=== PATIENT | female | born 1935 | race Caucasian/White ===

== ENCOUNTER 2022-06-01 21:23 | Emergency (ER) | payer MEDICARE ==
[~2022-06-01] VITALS: Ht 165.1 cm; Wt 63.6 kg
[2022-06-01 21:33] VITALS: BP 171/75
[2022-06-01 21:50] LABS: BASOPHILS # (AUTO) 0.1 X10'3 (0-0.2); BASOPHILS % (AUTO) 0.8 % (0-1); EOSINOPHILS # (AUTO) 0.3 X10'3 (0-0.9); EOSINOPHILS % (AUTO) 3.6 % (0-6); HEMATOCRIT 46.1 % (35.0-45.0); HEMOGLOBIN 15.4 g/dl (12.0-16.0); LYMPHOCYTES # (AUTO) 1.5 X10'3 (1.1-4.8); LYMPHOCYTES % (AUTO) 21.5 % (21-51); MEAN CORPUSCULAR HGB CONC 33.5 g/dL (33.0-36.5); MEAN CORPUSCULAR VOLUME 95.5 FL (78-98); MONOCYTES # (AUTO) 0.5 X10'3 (0-0.9); NEUTROPHILS # (AUTO) 4.7 X10'3 (1.8-7.7); NEUTROPHILS % (AUTO) 67.1 % (42-75); PLATELET COUNT 216 X10'3 (140-440); RED BLOOD COUNT 4.83 X10'6 (4.20-5.60); WHITE BLOOD COUNT 7.1 X10'3 (4.5-11.0)
[2022-06-01 22:04] LABS: ALANINE AMINOTRANSFERASE 23 U/L (12-78); ALBUMIN 3.9 G/DL (3.4-5.0); ALBUMIN/GLOBULIN RATIO 1.1 (1.1-1.5); ALKALINE PHOSPHATASE 54 IU/L (46-116); ANION GAP 7 (8-16); ASPARTATE AMINO TRANSFERASE 21 U/L (10-37); BILIRUBIN,TOTAL 0.4 MG/DL (0.1-1.0); BLOOD UREA NITROGEN 27 MG/DL (7-18); BUN/CREATININE RATIO 25.7 (10.0-20.0); CALCIUM 9.2 MG/DL (8.5-10.1); CHLORIDE 104 MMOL/L (99-107); CREATININE 1.05 MG/DL (0.40-0.90); GLUCOSE 182 MG/DL (70-104); POTASSIUM 3.8 MMOL/L (3.5-5.1); SODIUM 141 MMOL/L (135-145); TOTAL CARBON DIOXIDE 29.8 MMOL/L (24-32); TOTAL PROTEIN 7.3 G/DL (6.4-8.2); eGFR 50 ML/MIN
[2022-06-01 22:12] LABS: MAGNESIUM 2.3 MG/DL (1.5-2.4)
[2022-06-01] MEDS ORDERED: TETanus/Pertussis (Acell)/Diphther VAC/PF (Tdap-Adult) 0.5ml syringe IMVAC ONE (22:20)
[2022-06-01] MEDS ORDERED: acetaminophen 325mg tablet PO ONE (22:20)
[2022-06-01 23:53] LABS: D-DIMER 3.36 MG/L FEU (0-0.50)
[2022-06-02] MEDS ORDERED: iohexol 350MG/ML 100ml bottle IV ONE (00:31)
== END 2022-06-02 01:46 | disposition left against medical advice (07) ==
LOC: ER 21:23
DX: S51.011A Laceration without foreign body of right elbow, initial encounter (principal); M54.9 Dorsalgia, unspecified; R07.81 Pleurodynia; R51.9 Headache, unspecified
CPT/HCPCS: 36415; 70450; 71045; 80053; 83735; 83880; 84484; 85025; 85379; 90471; 90715; 93005; 99285; A6258; J3490; Q9967

== ENCOUNTER 2022-06-03 10:57 | Emergency (ER) | payer MEDICARE ==
[~2022-06-03] VITALS: Ht 165.1 cm; Wt 63.6 kg
[2022-06-03 13:55] VITALS: BP 171/71
[2022-06-03 14:24] LABS: BASOPHILS # (AUTO) 0.1 X10'3 (0-0.2); BASOPHILS % (AUTO) 1.1 % (0-1); EOSINOPHILS # (AUTO) 0.2 X10'3 (0-0.9); EOSINOPHILS % (AUTO) 2.4 % (0-6); HEMATOCRIT 46.3 % (35.0-45.0); HEMOGLOBIN 15.4 g/dl (12.0-16.0); LYMPHOCYTES # (AUTO) 1.5 X10'3 (1.1-4.8); LYMPHOCYTES % (AUTO) 20.2 % (21-51); MEAN CORPUSCULAR HEMOGLOBIN 32.1 PG (27.0-31.0); MEAN CORPUSCULAR HGB CONC 33.3 g/dL (33.0-36.5); MEAN CORPUSCULAR VOLUME 96.5 FL (78-98); MONOCYTES # (AUTO) 0.6 X10'3 (0-0.9); MONOCYTES % (AUTO) 7.5 % (2-12); NEUTROPHILS # (AUTO) 5.1 X10'3 (1.8-7.7); NEUTROPHILS % (AUTO) 68.8 % (42-75); PLATELET COUNT 212 X10'3 (140-440); RED CELL DISTRIBUTION WIDTH 13.3 % (11.5-14.5); WHITE BLOOD COUNT 7.4 X10'3 (4.5-11.0)
[2022-06-03 14:29] LABS: D-DIMER 0.79 MG/L FEU (0-0.50)
[2022-06-03 14:31] LABS: ALANINE AMINOTRANSFERASE 21 U/L (12-78); ALBUMIN 3.8 G/DL (3.4-5.0); ALKALINE PHOSPHATASE 51 IU/L (46-116); ASPARTATE AMINO TRANSFERASE 21 U/L (10-37); BILIRUBIN,TOTAL 0.5 MG/DL (0.1-1.0); BLOOD UREA NITROGEN 24 MG/DL (7-18); CALCIUM 9.2 MG/DL (8.5-10.1); CHLORIDE 105 MMOL/L (99-107); GLUCOSE 93 MG/DL (70-104); POTASSIUM 3.8 MMOL/L (3.5-5.1); SODIUM 141 MMOL/L (135-145); TOTAL CARBON DIOXIDE 30.9 MMOL/L (24-32); TOTAL PROTEIN 7.3 G/DL (6.4-8.2)
[2022-06-03 14:35] LABS: LIPASE 157 U/L (73-393)
[2022-06-03 15:18] LABS: ANION GAP 5 (8-16)
[2022-06-03 15:20] LABS: BUN/CREATININE RATIO 26.6 (10.0-20.0)
[2022-06-03 15:25] LABS: ALBUMIN/GLOBULIN RATIO 1.1 (1.1-1.5)
== END 2022-06-03 16:25 | disposition left against medical advice (07) ==
LOC: ER 10:58
DX: R06.02 Shortness of breath (principal); Z53.21 Procedure and treatment not carried out due to patient leaving prior to being seen by health care provider
CPT/HCPCS: 36415; 80053; 83690; 84484; 85025; 85379; 93005; 99281

== ENCOUNTER 2025-01-29 08:59 | Outpatient (CLI) | payer MEDICARE ==
[2025-01-26 13:25] LABS: CREATININE 1.10 MG/DL (0.40-0.90); TOTAL CARBON DIOXIDE 30.1 MMOL/L (24-32); eGFR 47 ML/MIN
--- NOTE | 2025-01-26 19:07 | RADIOLOGY REPORT ---
EXAM: MR MRI LOWER EXTREMITY RIGHT INDICATION: PAIN IN RIGHT KNEE,UNILATERAL PRIMARY OSTEOARTHRIT TECHNIQUE: Multiplanar, multisequence imaging of the right tibia/fibula COMPARISON: None FINDINGS: BONES: Trace amount of periosteal edema in the area of palpable concern of the anterior to anterior medial aspect of the proximal tibial diaphysis. No abnormal intra cortical or intramedullary signal. No complete stress fracture. MUSCLES: Normal signal intensity and morphology. TENDONS: Intact. LIGAMENTS: Intact. JOINT SPACES: Trace knee joint fluid. NEUROVASCULAR: Normal. OTHER: None. IMPRESSION: 1. Trace amount of periosteal edema in the area of palpable concern of the anterior to anterior medial aspect of the proximal tibial diaphysis. 2. No complete stress fracture. 3. Trace knee joint fluid.
[~2025-01-29 08:59] MED LIST: GADOTERATE MEGLUMINE 7.5 MMOL/15 ML VIAL IV ONE
--- NOTE | 2025-01-29 12:51 | RADIOLOGY REPORT ---
CLINICAL HISTORY: Pain. TECHNIQUE: Multi planar T1 fat saturated sequences were obtained prior to and after the administration of 7 mL clariscan contrast. Additional noncontrast images were obtained on 01/26/2025 and reported separately. COMPARISON: MR MRI LOWER EXTREMITY RIGHT on DOS: 01/26/25 FINDINGS: There is no abnormal postcontrast enhancement. No enhancing mass or other enhancing abnormality identified in the right lower leg. No enhancement associated with the trace periosteal edema and fluid at the anteromedial aspect of the tibial diaphysis seen on noncontrast enhanced imaging. Normal marrow signal throughout the tibia and fibula, and in the rest of the visualized osseous structures. No significant abnormality identified in the musculature.. IMPRESSION: 1. No abnormal postcontrast enhancement. No enhancing mass or other enhancing abnormality identified in the right lower leg. 2. No enhancement associated with the trace periosteal edema and fluid at the anteromedial aspect of the tibial diaphysis seen on recent noncontrast enhanced imaging. These findings may be seen with mild medial tibial stress syndrome in the appropriate clinical setting.
[2025-01-29] MEDS ORDERED: GADOTERATE MEGLUMINE 7.5 MMOL/15 ML VIAL IV ONE (19:10)
== END 2025-01-29 23:59 | disposition home or self-care (01) ==
LOC: MRI 08:59
PROVIDERS: ATTEND Family Medicine Sports Medicine
DX: M17.11 Unilateral primary osteoarthritis, right knee (principal); M25.561 Pain in right knee; M21.061 Valgus deformity, not elsewhere classified, right knee; R22.41 Localized swelling, mass and lump, right lower limb; G44.201 Tension-type headache, unspecified, intractable; M17.12 Unilateral primary osteoarthritis, left knee
CPT/HCPCS: 36415; 73718; 73720; 80053; A9575